=== PATIENT | male | born 1950 | race Caucasian/White ===

== ENCOUNTER → 2021-02-25 14:26 | Outpatient (CLI) | payer MEDICARE, SELFPAY ==
--- NOTE | 2021-02-25 14:37 | DI.RAD.S_ITS ---
PROCEDURE: XR SHOULDER RT MIN 2V INDICATIONS: RT SHOULDER INJURY TECHNIQUE: 3 views of the shoulder were acquired. COMPARISON: None. FINDINGS: Bones: No fractures or dislocations. No suspicious bony lesions. Visualized ribs appear intact. Superior migration of the humeral head. Mild joint narrowing with periarticular osteophyte formation of the acromioclavicular and glenohumeral joint Soft tissues: No suspicious soft tissue calcifications. IMPRESSION: Superior migration of the humeral head consistent with rotator cuff pathology and/or muscle atrophy. If indicated MRI could be performed to further evaluate the soft tissues. Mild acromioclavicular and glenohumeral joint degeneration. Dictated by: Toni MCCRARY Interpreted: Ildefonso Centeno MD on 02/25/2021 at 15:37 Transcribed by: ISHA on 02/25/2021 at 15:38 Approved by: Ildefonso Centeno M.D. on 02/25/2021 at 17:42
== END ==
PROVIDERS: PCP Internal Medicine; Referring Provider Internal Medicine; Visit Provider Internal Medicine
DX: S49.91XA Unspecified injury of right shoulder and upper arm, initial encounter (principal); M19.011 Primary osteoarthritis, right shoulder; X58.XXXA Exposure to other specified factors, initial encounter
CPT/HCPCS: 73030

== ENCOUNTER → 2024-10-24 11:30 | Outpatient (CLI) | payer MEDICARE, SELFPAY ==
--- NOTE | 2024-10-24 11:33 | DI.US.S_ITS ---
PROCEDURE: US ABD AORTA ANEURYSM SCREEN INDICATIONS: SCREENING FOR AAA TECHNIQUE: Real time scanning was performed of the aorta and iliac arteries, with image documentation. COMPARISON: None. FINDINGS: Aorta: Proximal aortic diameter measures 2.3 cm. Mid-aorta measures 2.1 cm. Distal aortic diameter is 2 cm. Iliac arteries: Right common iliac artery measures 1 cm. Left common iliac artery measures 1 cm. This study is limited by body habitus. IMPRESSION: Negative for aneurysm. Dictated by: Kuldip Trevizo M.D. on 10/24/2024 at 12:45 Approved by: Kuldip Trevizo M.D. on 10/24/2024 at 12:46
== END ==
PROVIDERS: PCP Internal Medicine; Referring Provider Physician Assistant; Visit Provider Physician Assistant
DX: Z13.6 Encounter for screening for cardiovascular disorders (principal)
CPT/HCPCS: 76706